=== PATIENT | male | born 1975 | race Caucasian/White ===

== ENCOUNTER 2018-11-21 12:46 | Emergency (ER) | payer OTHER, SELFPAY ==
[2018-11-21 12:48] VITALS: BP 157/110; PULSE 75; RESP 18; TEMP 36.7; O2SAT 100
--- NOTE | 2018-11-21 13:14 | ED_ITS ---
HPI - Skin/Abscess/Foreign Bdy <MANPREET Swain - Last Filed: 11/21/18 20:34> General Chief complaint: Skin/Abscess/Foreign Body Stated complaint: FACE IS HURTING Time Seen by Provider: 11/21/18 12:50 Source: patient Mode of arrival: ambulatory Limitations: no limitations History of Present Illness HPI narrative: 42-year-old male with a history of osteomyelitis, presents emergency department today complaining of left upper 5/10 aching hard palate pain starting about 3 days ago. He states it started when he woke up, and have been getting progressively worse today. Pain is worse when he tries to eat. He took Advil today which has decreased the pain significantly. Patient was undergoing a Health assessment today for the [employer] and was seen by a dentist who stated that he did not think anything acute going on at this time. Denies lesions, chest pain, shortness of breath, vision changes, ear pain, nausea, vomiting, diarrhea, point of fevers, or chills. Patient also denies sick contacts. Related Data Home Medications Medication Instructions Recorded Confirmed Ambien 1 tab PO .ONCE 11/21/18 11/21/18 escitalopram oxalate 10 mg PO DAILY 11/21/18 11/21/18 Previous Rx's Medication Instructions Recorded clindamycin HCl 300 mg PO TID 5 Days #15 cap 11/21/18 Allergies Allergy/AdvReac Type Severity Reaction Status Date / Time Penicillins Allergy Verified 11/21/18 13:17 Review of Systems <MANPREET Swain - Last Filed: 11/21/18 20:34> Review of Systems REVIEW OF SYSTEMS: GENERAL: Denies fever or chills. HENT: No head trauma, complains of mouth pain, see HPI. EYES: No loss of vision, double vision, eye pain, or irritation. CARDIOVASCULAR: No chest pain or syncope. RESPIRATORY: No shortness of breath or cough. GASTROINTESTINAL: No nausea, vomiting, diarrhea, or constipation. GENITOURINARY: No flank pain or dysuria. MUSCULOSKELETAL: No pain, weakness, or deformities. INTEGUMENTARY: No rash, lesions, or pruritus. NEURO: No numbness, tingling, memory loss, or confusion. PSYCH: No behavior or mood changes. PFSH <MANPREET Swain - Last Filed: 11/21/18 20:34> Medical History No significant medical problems (Acute) Social History Smoking Status: Former smoker Social History Smoking Status: Former smoker Exam <MANPREET Swain - Last Filed: 11/21/18 20:34> Initial Vital Signs Initial Vital Signs: Vital Signs Temperature 98.1 F 11/21/18 12:48 Pulse Rate 75 11/21/18 12:48 Respiratory Rate 18 11/21/18 12:48 Blood Pressure 157/110 H 11/21/18 12:48 Pulse Oximetry 100 11/21/18 12:48 PHYSICAL EXAMINATION: GENERAL: Well groomed, alert, and cooperative. Answers questions promptly and ap propriately. Vital signs noted. HENT: Normocephalic, atraumatic. 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 No swelling, erythema or lesions noted within his mouth. Pain was not reproduced with palpation. No TMJ tenderness. Slight erythema to ear canals, TMs intact without effusion or pus. EYES: PERRLA, EOMIs, conjunctiva pink, sclera white, no periorbital swelling. NECK/LYMPH: Full range of motion, swollen submandibular glands. CHEST: Normal to inspection and without deformities. CARDIOVASCULAR: S1 and S2 sounds normal. Regular rate and rhythm, no murmurs, clicks, or bruits. No pedal edema. RESPIRATORY: Normal respiratory rate, trachea midline, airway patent. No stridor, nasal flaring or accessory muscle use. Lungs are clear in all [place] without wheeze, rhonchi, or crackles. MUSCULOSKELETAL: Normal gait and coordination. Equal tone and mass bilaterally. No spinal tenderness or deformities. EXTREMITIES: CMS intact. Moves all extremities. SKIN: Warm, dry, soft, appropriate color for ethnicity. No lesions, rashes, or wounds. No erythematous areas or lesions noted to face. NEURO: Alert and Oriented X 3. Good coordination. No ataxia, or sensory deficits, or cognitive issues. PSYCH: Appropriate affect and mood. <Mariola David DO - Last Filed: 11/23/18 07:49> Narrative Exam Narrative: GEN: well nourished, well appearing male, alert and oriented x 3, patient appears to be in [id number] distress. Patient is sitting up on side of the bed. HEENT: Atraumatic, pupils are equal round reactive to light, extraocular movements are intact, nares are clear, TMs are clear with no fluid, patient has small streak of erythema on each canal but it is thin without obvious signs of infection, edema and would suspect may be from Q-tip use. Throat is clear without any exudates, erythema, tonsillar enlargement or uvular deviation, patient has torus palatinus on exam. Patient does not have any tenderness with palpation of the bone or soft tissue of the face. Unable to reproduce the patient's pain. No hoarseness, no stridor, no muffled voice. Patient has full range of motion of his neck, without any swelling or lymphadenopathy. HEART: Regular rate and rhythm without murmur, clicks, rubs. LUNGS:Lungs clear to auscultation, no wheezes, rales, crackles, chest moves symmetrically NEURO:CN 2-12 intact, sensation normal Initial Vital Signs Initial Vital Signs: Vital Signs Temperature 98.1 F 11/21/18 12:48 Pulse Rate 75 11/21/18 12:48 Respiratory Rate 18 11/21/18 12:48 Blood Pressure 157/110 H 11/21/18 12:48 Pulse Oximetry 100 11/21/18 12:48 Course <MANPREET Swain - Last Filed: 11/21/18 20:34> Orders Ordered: Discontinued Medications Dexamethasone (Decadron) 10 mg PO NOW ONE Stop: 11/21/18 13:10 Last Admin: 11/21/18 13:17 Dose: 10 mg Ketorolac Tromethamine (Toradol) 30 mg IM NOW ONE Stop: 11/21/18 13:55 Last Admin: 11/21/18 14:20 Dose: 30 mg Reevaluation(s) Reevaluation #1: Patient stated no improvement after administration of Decadron, however patient stated that his pain improved significantly after administration of Toradol. Consultations Consultation #1: Dr. David also evaluated the patient and agrees with conclusions and plan care. Vital Signs - 8 hr 11/21/18 12:48 11/21/18 14:51 Temperature 98.1 F Pulse Rate 75 64 Respiratory Rate 18 Blood Pressure 157/110 H 146/94 H Pulse Oximetry 100 <Mariola David DO - Last Filed: 11/23/18 07:49> Orders Ordered: Discontinued Medications Dexamethasone (Decadron) 10 mg PO NOW ONE Stop: 11/21/18 13:10 Last Admin: 11/21/18 13:17 Dose: 10 mg Ketorolac Tromethamine (Toradol) 30 mg IM NOW ONE Stop: 11/21/18 13:55 Last Admin: 11/21/18 14:20 Dose: 30 mg Vital Signs - 8 hr 11/21/18 12:48 11/21/18 14:51 Temperature 98.1 F Pulse Rate 75 64 Respiratory Rate 18 Blood Pressure 157/110 H 146/94 H Pulse Oximetry 100 MDM - Skin/Abscess/Foreign Bdy <MANPREET Swain - Last Filed: 11/21/18 20:34> Medical Records Attestation: I reviewed the patient's medical records. Lab Data Attestation: I reviewed the patient's lab results. Point of Care Testing Rapid Strep A Negative MDM Narrative Medical decision making narrative: Unsure exact origin of patient's pain. Suspect some kind of viral or bacterial infection due to erythematous ear canals and swollen submandibular gland, possibly dental infection in nature due to multiple dental fillings. Concerned about his history of osteomyelitis, however patient was unsure exact cause of infection last time. Discussed with patient multiple options of further workup, patient opted to have a trial of antibiotic and in schedule close follow-up. Less likely trigeminal neuralgia due to lack of pain on his face, less likely shingles or stomatitis due to lack of lesions. <Mariola David DO - Last Filed: 11/23/18 07:49> Lab Data Point of Care Testing Rapid Strep A Negative MDM Narrative Medical decision making narrative: Discussed with patient as well as the nurse practitioner, patient could possibly have a very early osteomyelitis as he has a description of history of osteomyelitis although by description he had a couple days of IV antibiotics. Initially with his description to the nurse pr actitioner was not sure of the correct phrase or word so he may have had a cellulitis or something else that was the cause of the infection. Patient and I discussed there is no obvious signs of infection at this time, he could potentially have a dental infection, sialadenitis, prostatitis, trigeminal neuralgia, or potentially other cause. Patient was given option of further workup versus watchful waiting or short course of antibiotics with his past history. Patient elected for short course of antibiotics and follow-up. Discharge Plan Departure Patient Disposition: Home Clinical Impression: Acute pain of mouth, Pain, dental Discharge Date/Time: 11/21/18 14:52 Interventions: ED Discharge Assessment Last Done: 11/21/18 14:51 Instructions: DI for Tooth Abscess Activity Restrictions/Additional Instructions: Thank you for entrusting me with your care today. As discussed, we are unsure of the exact cause of your mouth pain. You were given an anti-inflammatory in the emergency department, this will continue to work for 3 days. Take ibuprofen 400-600 mg every 6 hours for the next 3 days for pain and inflammation. I prescribed an antibiotic please take this until it is finished. Follow with her primary care provider in the next week. Return to the emergency department if he develops chest pain, syncope, shortness of breath, swelling of her face, fevers, or chills. Prescriptions: New clindamycin HCl 300 mg capsule 300 mg PO TID 5 Days Qty: 15 RF: 0 No Action escitalopram oxalate 5 mg tablet 10 mg PO DAILY RF: 0 Ambien 1 tab PO .ONCE RF: 0 <Mariola David DO - Last Filed: 11/23/18 07:49> Cosign ED Attending Cosignature Attestation: I was immediately available in the department for consultation, case was discussed, patient's chart was reviewed and patient was seen by myself. This documentation has been reviewed and I agree with assessment and plan. Supervised by Mariola David DO
[2018-11-21] MEDS: DEXAMETHASONE 10 MG/ML VIAL PO (13:17)
[2018-11-21] MEDS: KETOROLAC 60 MG/2 ML VIAL 30 MG IM (14:20)
[2018-11-21 14:51] VITALS: BP 146/94; PULSE 64
== END 2018-11-21 14:52 | disposition home or self-care (01) ==
PROVIDERS: Emergency Provider Nurse Practitioner
DX: K13.79 Other lesions of oral mucosa (principal); K08.89 Other specified disorders of teeth and supporting structures
CPT/HCPCS: 87880; 96372; 99282; 99283; J1100; J1885